=== PATIENT | male | born 1995 | race Caucasian/White ===

== ENCOUNTER → 2017-02-02 | Outpatient (CLI) | payer OTHER ==
[~2017-02-02] MED LIST: SINCALIDE INJ 2.1 MCG in SODIUM CHLORIDE 0.9% 100ML 100 ML IV ONE
--- NOTE | 2017-02-02 10:06 | DIAGNOSTIC IMAGING REPORT ---
NUCLEAR MEDICINE HEPATOBILIARY SCAN WITH GALLBLADDER EJECTION FRACTION CLINICAL HISTORY: Abdominal pain. COMPARISON: None TECHNIQUE: 5.3 mCi of technetium 99m Choletec IV was injected at 8:00 AM on February 02, 2017. Immediately following injection, imaging of the abdomen was carried out for 60 minutes in the anterior projection. At this time, 2.1 mcg of Sincalide was injected IV as per protocol. Imaging was performed for an additional 45 minutes to estimate a gallbladder ejection fraction. FINDINGS: Hepatic uptake of radiotracer is prompt and homogeneous. Activity is first identified within the gallbladder, common bile duct and small bowel at 10 minutes. Normal gallbladder emptying was noted with a gallbladder ejection fraction of 98%. Normal is greater than 30-35%. IMPRESSION: 1. Normal hepatobiliary scan. No evidence of acute or chronic cholecystitis. 2. Normal gallbladder ejection fraction. Electronically signed by: Neal Richardson M.D. 02/02/2017 10:02 AM Dictated Date/Time: 02/02/2017 10:01 AM
== END | disposition home or self-care (01) ==
LOC: C.NUCL 07:35
PROVIDERS: ATTEND Surgery
DX: R10.9 Unspecified abdominal pain (principal)